=== PATIENT | female | born 1990 | race Caucasian/White ===

== ENCOUNTER → 2024-01-06 09:58 | Outpatient (REF) | payer OTHER, SELFPAY | LOC: WDC 09:58 | PROVIDERS: ATTENDING PHYSICIAN Obstetrics & Gynecology; FAMILY PHYSICIAN Physician Assistant | DX: N63.21 Unspecified lump in the left breast, upper outer quadrant (principal) | CPT/HCPCS: 76642; 77062; 77066 ==

== ENCOUNTER 2024-07-29 04:20 | Emergency (ER) | payer OTHER, SELFPAY ==
[2024-07-29] VITALS (9 sets, daily range): BP systolic 132–204; BP diastolic 78–122; BMI 26.5
[2024-07-29] MEDS: DILAUDID 0.5 MG IV ×2 (04:47→07:07)
[2024-07-29] MEDS: ZOFRAN 4 MG IV (04:47)
[2024-07-29 05:01] LABS: % Basophils 1.2 % (0-2); % Eosinophils 1.6 % (0-6); % Immature Granulocytes 0.1 % (0-0.5); % Lymphocytes 43.3 % (20.5-51.1); % Monocytes 5.9 % (1.7-9.3); % Neutrophils 47.9 % (42.2-75.2); Absolute Basophils 0.1 10^3/uL (0-0.2); Absolute Eosinophils 0.2 10^3/uL (0-0.7); Absolute Lymphocytes 4.1 10^3/uL (1.2-3.4); Absolute Monocytes 0.6 10^3/uL (0.1-0.6); Absolute Neutrophils 4.6 10^3/uL (1.4-6.5); Hematocrit 36.6 % (37.0-47.0); Hemoglobin 12.8 g/dL (12.0-16.0); Mean Corpuscular Hgb 29.4 pg (27.0-31.0); Mean Corpuscular Volume 83.9 fL (81.0-99.0); Mean Platelet Volume 9.8 fL (7.4-10.4); Nucleated Red Blood Cells % 0 %; Platelet Count 308 10^3/uL (130-400); Red Blood Cell Count 4.36 10^6/uL (4.20-5.40); Red Cell Dist. Width 13.7 % (11.5-14.5); White Blood Cell Count 9.5 10^3/uL (4.8-10.8)
--- NOTE | 2024-07-29 05:18 | ED.GENMED ---
History of Present Illness
General
Chief Complaint: Abdominal Symptoms
Source: patient
Exam Limitations: none
Time Seen by Provider: 07/29/24 04:51
Nursing documentation reviewed up to this point in time: agreed with
History of Present Illness
History of Present Illness:
Note:
CHIEF COMPLAINT(S)
Abdominal pain
HISTORY OF PRESENT ILLNESS
A 34-year-old female presents with abdominal pain described as burning and ripping across the back. The pain started around 2:00 PM today and is presently characterized as dull but persistent. The patient noted onset of pain approximately 1 hour
after consuming a meal, which consisted of half a chicken salad sandwich. The patient reports that previously the pain was intense but has since become more manageable, yet persistent. She describes the pain as 'like a little bit of everything,'
including 'burning' and 'ripping' sensations.
The patient reports no recent episodes of fever. Past medical history is notable for the patient having undergone surgery for a twisted ovary. She is not currently on any medications.
SOCIAL HISTORY
The patient previously resided in the neighborhood but has since relocated to a different area. She discusses issues related to access to coffee but no specific mention of substance use such as smoking, alcohol, or drug use.
PHYSICAL EXAM
- Nursing notes reviewed and vital signs reviewed.
PROBLEM LIST
Acute: Abdominal pain
DIFFERENTIAL DIAGNOSIS
The Differential Diagnosis includes, in no particular order and is not limited to:
1. Gastroesophageal reflux disease (GERD)
2. Peptic ulcer disease
3. Gallbladder disease such as cholelithiasis or cholecystitis
4. Pancreatitis
5. Irritable bowel syndrome
6. Appendicitis
7. Ovarian torsion
8. Endometriosis
9. Urinary tract infection
10. Musculoskeletal pain
Disposition:
DIAGNOSIS
- Cholecystitis (K81.0)
SUMMARY OF ENCOUNTER
A 34-year-old female presented to the emergency department with severe right upper quadrant abdominal pain beginning approximately one hour after consuming a chicken salad sandwich. The patients ultrasound revealed a distended gallbladder with wall
thickening, but no evidence of cholelithiasis or biliary obstruction. The pain persisted, necessitating pain management.
DISPOSITION
Admit
ASSESSMENT
The patient is likely suffering from acute acalculous cholecystitis given the ultrasound findings and symptomatology. Other differential diagnoses include gallbladder disease complications and potential pancreatitis.
EMERGENCY TREATMENTS ADMINISTERED
Patient required pain medication for severe abdominal pain.
INDEPENDENT INTERPRETATION OF TESTS
My independent interpretation of the abdominal ultrasound shows a distended gallbladder with thickened sagastume and no visible cholelithiasis or biliary obstruction.
PATIENT EDUCATION AND COUNSELING
The patient was informed about the likely diagnosis of cholecystitis and the need for further evaluation and potential intervention. Pain management options and dietary modifications were likely discussed as preventive measures.
MEDICAL DECISION MAKING
Number and Complexity of Problems Addressed: The patient presented with acute abdominal pain, and the differential diagnosis included multiple gastrointestinal conditions. Given the ultrasound findings, further evaluation was necessary to rule out
complications.
Risk: The decision for admission was influenced by the severity of symptoms and the potential risk of gallbladder-related complications requiring surgical intervention.
Review of Systems
Review of Systems
Allergies reviewed?: Yes
All Other Systems: ROS reviewed and negative except as documented in HPI and ROS
Constitutional: Reports no symptoms
EENT: Reports no symptoms
Respiratory: Reports no symptoms
Cardiac: Reports no symptoms
ABD/GI: Reports abdominal pain
: Reports no symptoms
Musculoskeletal: Reports no symptoms
Skin: Reports no symptoms
Neurological: Reports no symptoms
Endocrine: Reports no symptoms
Hematologic/Lymphatic: Reports no symptoms
Psychiatric: Reports anxiety
Phy Exam
General Physical Exam
General Presentation: well appearing, moderate distress and mild distress
General age: appears stated age
Gastrointestinal Exam
Gastrointestinal Exam: normal bowel sounds and guarding
Course
Orders/Labs/Results
Orders:
Orders
07/29/24 04:31
Test Result ONCE
07/29/24 04:38
0.9% Sodium Chloride 1000 ml [Nss] 1,000 ml IV BOLUS
HYDROmorphone [Dilaudid] 0.5 mg IV NOW STA
Ondansetron Injectable [Zofran] 4 mg IV NOW STA
07/29/24 04:43
Complete Blood Count/With Diff Urgent
Comprehensive Metabolic Panel Urgent
HCG, Serum Qualitative Screen Urgent
Lipase Urgent
07/29/24 05:17
US Abdomen Complete/Upper Urgent
Comment:
Reason For Exam: upper abd pain
07/29/24 06:54
HYDROmorphone [Dilaudid] 0.5 mg IV NOW STA
07/29/24 08:24
SURGICAL CONSULT Routine
Consulting Provider: Caio Guy
Was physician already notified: Yes
07/29/24 09:53
Iohexol [Omnipaque] See Protocol PO NOW STA
07/29/24 09:54
CT Abd/pel W Iv And Oral Contr Urgent
Comment:
Reason For Exam: abdominal pain
07/29/24 10:24
Ketorolac [Toradol] 15 mg .ROUTE .STK-MED ONE
07/29/24 10:27
Ketorolac [Toradol] 15 mg IV NOW STA
Abnormal Lab Results
07/29/24
04:43
Hct 36.6 L %
(37.0-47.0)
Absolute Lymphs (auto) 4.1 H 10^3/uL
(1.2-3.4)
Carbon Dioxide 21 L mmol/L
(22-30)
Glucose 138 H mg/dl
(70-99)
07/29/24 04:43
07/29/24 04:43
Vital Signs
Initial and Last Documented VS:
Initial Vital Signs
Temp Pulse Resp BP Pulse Ox
97.6 F 96 24 204/122 97
07/29/24 04:24 07/29/24 04:24 07/29/24 04:24 07/29/24 04:24 07/29/24 04:24
Last Documented Vital Signs
Temp Pulse Resp BP Pulse Ox
98.6 F 88 16 132/78 99
07/29/24 12:08 07/29/24 12:08 07/29/24 12:08 07/29/24 12:08 07/29/24 12:08
*Critical Care Note
Total Time (30-74mins, 75-104mins- exclusive of procedures): Not Applicable
ED Attending Note
-
Portions of this chart may have been created with voice recognition software.� Occasional wrong word or��sound alike� substitutions may have occurred due to the inherent limitations of voice recognition software.
Discharge Plan
Departure
Patient Disposition: Home (Routine Discharge)
Date of Disposition: 07/29/24
Time of Disposition: 13:57
Admit to: Med/Surg
Patient with high blood pressure during this ER visit?: Yes
Condition: Good
Discharge Problem:
Right upper quadrant abdominal pain
Instructions: Gallstones - Discharge instructions
Prescriptions:
No Action
lorazepam 1 MG tablet
1 mg PO BIDPRN PRN (Reason: anxiety)
hydroxyzine pamoate 25 mg Capsule
25 mg PO BIDPRN PRN (Reason: anxiety)
magnesium glycinate 100 mg Tablet
100 mg PO HS
Referrals:
Caio Guy MD [Active, Surgical]
UNKNOWN - PT DOES,NOT KNOW [Family Provider]
Activity Restrictions/Additional Instructions:
The ultrasound and CT scans did not show gallstones, but did show some inflammation of the gallbladder. You were evaluated by Dr. Guy with surgery and he felt you did not need emergent surgery for this. Please follow up with him as an outpatient
and return to ER with new or worsening symptoms including fevers, intractable vomiting/pain.
Interventions
Interventions:
*Risk Screen - Suicide Last Done: 07/29/24 06:54
*General Assessment Last Done: 07/29/24 06:54
*Neglect/Abuse Screening Last Done: 07/29/24 06:54
*ED- Fall Risk Assessment Last Done: 07/29/24 06:54
*ED COVID-19 Vaccine History Last Done: 07/29/24 06:54
*Nursing Disposition Last Done: 07/29/24 14:09
TS-Qjjbrf-Efiuhnhhpk Assessment Last Done: 07/29/24 04:35
Discharge Date and Time
Discharge Date/Time: 07/29/24 14:09
Print Language: TURKMEN
[2024-07-29 05:25] LABS: ALT (SGPT) 31 U/L (0-35); AST (SGOT) 31 U/L (14-36); Albumin 4.4 g/dl (3.5-5.0); Alkaline Phosphatase 58 U/L (38-126); Blood Urea Nitrogen 11 mg/dl (7-17); Calcium 9.5 mg/dl (8.4-10.2); Carbon Dioxide 21 mmol/L (22-30); Chloride 107 mmol/L (98-107); Estimated Creatinine Clearance 95 ml/min; Glucose 138 mg/dl (70-99); Lipase 147 U/L (23-300); Potassium 4.1 mmol/L (3.5-5.1); Sodium 140 mmol/L (135-145); Total Bilirubin 0.4 mg/dl (0.2-1.3); Total Protein 7.3 g/dl (6.3-8.2); eGFR > 60.00
[2024-07-29 05:34] LABS: HCG, Serum Qualitative Screen Negative
[2024-07-29] MEDS: NSS 1000 IV (05:45)
--- NOTE | 2024-07-29 09:54 | ED.ADDNOTE ---
ED Addendum
ED Addendum
ED Addendum Note:
Patient was evaluated by surgery as well as the hospitalist on-call. Patient is feeling much better at this time. Surgery does not feel like she has an acute gallbladder. Patient offered continued observation for CT scan and symptomatic relief.
She prefers not to stay at the hospital. Discussed with patient, we will CT scan in the emergency department and if no acute disease then we will p.o. challenge her and aim to discharge if she is feeling better
[2024-07-29] MEDS: OMNIPAQUE 50 ML PO (10:16)
[2024-07-29] MEDS: TORADOL 15 MG IV (10:28)
--- NOTE | 2024-07-29 10:33 | CON.GS ---
Consultation
-
Date/Time Consultation Requested: 07/29/2024 9 AM
Date/Time Consultation Performed: 07/29/2024 9:30 AM
Requesting Provider: Dr. Deng
Performing Provider: Dr. Guy
Reason for Consultation: Right upper quadrant pain
Medical History
-
Chief Complaint: Epigastric abdominal pain
History of Present Illness:
This is a 34-year-old female who presents with a 1 day history of epigastric pain radiating down to her umbilicus. She has had similar pain in the past but workup including HIDA scan was negative. She had an ultrasound done here which was negative
for stones, though the gallbladder was noted to be slightly thickened and distended. Nevertheless she has no white count and LFTs are normal. Furthermore, she states that her pain has now resolved. The patient denies Fever, Chest Pain, Shortness
Of Breath, Nausea, Vomiting, changes in urinary and bowel habits, unintentional weight loss, jaundice, icterus, acolic stools.
Past Medical History
Past Medical History: Reviewed & Noncontributory
Past Surgical History: None
Social History
Tobacco: Non-Smoker
Alcohol: None
Drug: None
Family History
Family History: Reviewed & Not Pertinent
Allergies / Home Medications
Allergy/AdvReac Type Severity Reaction Status Date / Time
Penicillins Allergy Unknown Verified 07/29/24 04:24
�Medication �Instructions �Recorded �Confirmed �Type
hydroxyzine pamoate 25 mg capsule 25 mg PO BIDPRN PRN anxiety 07/29/24 07/29/24 History
lorazepam 1 mg tablet 1 mg PO BIDPRN PRN anxiety 07/29/24 07/29/24 History
magnesium glycinate 100 mg (as 100 mg PO HS 07/29/24 07/29/24 History
glycinate) tablet
Review of Systems
-
All other systems: Negative unless noted
A 10 point review of systems was completed, and was negative except as per HPI.
Physical Exam
Vital Signs
Temp Pulse Resp BP Pulse Ox
98.5 F 98 16 144/88 96
07/29/24 04:35 07/29/24 10:00 07/29/24 10:00 07/29/24 10:00 07/29/24 08:41
07/28/24 07/29/24 07/30/24
06:59 06:59 06:59
Actual Weight 67.9 kg
Body Mass Index (BMI) 26.5
Lab Results
07/29/24 04:43
07/29/24 04:43
WBC 9.5 10^3/uL (4.8-10.8) 07/29/24 04:43
Hgb 12.8 g/dL (12.0-16.0) 07/29/24 04:43
Hct 36.6 % (37.0-47.0) L 07/29/24 04:43
Plt Count 308 10^3/uL (130-400) 07/29/24 04:43
Abs Immat Gran (auto) 0.0 10^3/uL (0-0.05) 07/29/24 04:43
Neutrophils % 47.9 % (42.2-75.2) 07/29/24 04:43
Data Reviewed
-
Ultrasound: Image Personally Visualized and interpreted, Report Reviewed by me, Discussed with Physician and Discussed with Patient
Labs: Labs Reviewed by me, Discussed with Physician and Discussed with Patient
Total Time Spent with Patient (in minutes): 30
Assessment / Plan
-
This is a 34-year-old female who presents with epigastric abdominal pain radiating in a bandlike fashion across the abdomen. Her abdominal exam is unremarkable and she is not tender to palpation. Blood work unremarkable, ultrasound imaging shows a
distended and mildly thickened gallbladder with no stone disease. She has a remote HIDA scan which was performed for similar but less severe symptoms previously which was negative (gallbladder EF 99%).
No acute surgical intervention warranted and no clear indication for surgical admission at this point.
Dispo per ED/primary, though would be reasonable to p.o. challenge and continue outpatient workup if her symptoms have resolved.
== END 2024-07-29 14:09 | disposition home or self-care (01) ==
LOC: EMR 04:20
PROVIDERS: CONSULT PHYSICIAN Surgery; EMERGENCY PHYSICIAN Student in an Organized Health Care Education/Training Program
DX: R10.11 Right upper quadrant pain (principal); Z90.721 Acquired absence of ovaries, unilateral
CPT/HCPCS: 99284; 96374; 96375; 96376; 74177; 76700; 80053; 83690; 84703; 85025; Q9967

== ENCOUNTER 2024-09-17 04:44 | Day surgery (SDC) | payer OTHER, SELFPAY ==
[2024-09-17] VITALS (20 sets, daily range): BP systolic 137–208; BP diastolic 96–126; BMI 28.9; BMI 28.8; BMI 28.7
[2024-09-17 01:20] LABS: Hematocrit 37.4 % (37.0-47.0); Hemoglobin 12.5 g/dL (12.0-16.0); Mean Corp Hgb Conc. 33.4 g/dL (33.0-37.0); Mean Corpuscular Volume 87.0 fL (81.0-99.0); Nucleated Red Blood Cells % 0 %; Platelet Count 256 10^3/uL (130-400); Red Cell Dist. Width 14.5 % (11.5-14.5)
[2024-09-17] MEDS: NSS 1000 IV ×2 (01:26→06:23)
[2024-09-17] MEDS: ZOFRAN 4 MG IV ×2 (01:26→15:00)
[2024-09-17] MEDS: TORADOL 15 MG IV ×2 (01:26→02:29)
[2024-09-17 01:35] LABS: ALT (SGPT) 19 U/L (0-35); AST (SGOT) 24 U/L (14-36); Albumin 4.1 g/dl (3.5-5.0); Alkaline Phosphatase 44 U/L (38-126); Blood Urea Nitrogen 15 mg/dl (7-17); Calcium 9.4 mg/dl (8.4-10.2); Carbon Dioxide 21 mmol/L (22-30); Chloride 110 mmol/L (98-107); Estimated Creatinine Clearance 110 ml/min; Glucose 134 mg/dl (70-99); Lipase 132 U/L (23-300); Potassium 4.3 mmol/L (3.5-5.1); Sodium 138 mmol/L (135-145); Total Protein 6.9 g/dl (6.3-8.2); eGFR > 60.00
[2024-09-17 01:52] LABS: HCG, Serum Qualitative Screen Negative
[2024-09-17 02:53] LABS: Urine Character Clear (Clear)
[2024-09-17 02:59] LABS: Urine Squamous Cell >30 /LPF (Few)
[2024-09-17 03:00] LABS: Urine White Cell None Seen /HPF (0-5)
[2024-09-17] MEDS: DILAUDID 0.5 MG IV ×6 (03:08→15:49)
--- NOTE | 2024-09-17 03:21 | ED.GENMED ---
History of Present Illness
General
Chief Complaint: Abdominal Pain
Source: patient
Exam Limitations: none
Time Seen by Provider: 09/17/24 01:15
Nursing documentation reviewed up to this point in time: agreed with
History of Present Illness
History of Present Illness:
34-year-old female presenting to the emergency department today with concerns of right upper quadrant abdominal pain over the past few hours. Has had intermittent symptoms in the past from gallstones. Associated nausea and vomiting as well. No
fevers no changes in bowel movements.
Review of Systems
Review of Systems
Allergies reviewed?: Yes
All Other Systems: ROS reviewed and negative except as documented in HPI and ROS
Phy Exam
Physical Exam
Physical Exam:
GENERAL: Alert , in no apparent distress
EYE: pupils equal and reactive
NECK: Supple, no significant adenopathy.
ENT: o/p clr, mmm.
CARDIAC: Regular rate and rhythm .
LUNGS: Clear breath sounds bilaterally, no acute respiratory distress, no wheezes/rales/rhonchi
ABDOMEN: Right upper quadrant pain positive Morel's otherwise soft abdomen
NEUROLOGICAL: Alert and oriented, no focal neuro deficits
SKIN: Warm and dry, skin intact.
MUSCULOSKELETAL: No edema, well perfused.
PSYCH: Normal and appropriate interaction.
Course
Orders/Labs/Results
Orders:
Orders
09/17/24 01:12
Complete Blood Count/With Diff Urgent
Comprehensive Metabolic Panel Urgent
HCG, Serum Qualitative Screen Urgent
Comment: ADDED
Lipase Urgent
09/17/24 01:17
Ketorolac [Toradol] 15 mg IV NOW STA
Ondansetron Injectable [Zofran] 4 mg IV NOW STA
Test Result ONCE
US Abdomen Complete/Upper Urgent
Comment:
Reason For Exam: RUQ pain
09/17/24 01:18
0.9% Sodium Chloride 1000 ml [Nss] 1,000 ml IV BOLUS
09/17/24 01:21
Add On- LAB Urgent
Tests Added?: Beta qual
09/17/24 02:26
Ketorolac [Toradol] 15 mg IV NOW STA
09/17/24 02:31
Urine Microscopic Reflex Cult Urgent
Urine Reflex Culture from UA [Urinalysis Reflex To Culture] Urgent
Date Specimen was Collected: 09/17/24
Time Specimen was Collected: 02:11
09/17/24 02:59
HYDROmorphone [Dilaudid] 0.5 mg IV NOW STA
09/17/24 03:20
Ciprofloxacin 400 mg IVPB NOW Ciprofloxacin 400 mg/[id number] [Cipro 400 mg] 200 ml IV NOW
MetroNIDAZOLE IVPB 500 mg IVPB NOW MetroNIDAZOLE 500 MG/100 ML [Flagyl 500 mg] 100 ml IV NOW
Abnormal Lab Results
09/17/24 09/17/24
01:12 02:31
Absolute Monos (auto) 0.7 H 10^3/uL
(0.1-0.6)
Chloride 110 H mmol/L
(98-107)
Carbon Dioxide 21 L mmol/L
(22-30)
Glucose 134 H mg/dl
(70-99)
Ur Occult Blood Reflex 4+ A
(Negative)
Urine RBC 3-6 A /HPF
(0-2)
Urine Bacteria (Reflex) Few A
(Negative)
Urine Albumin (Reflex) 2+ A
(Neg - Trace)
09/17/24 01:12
09/17/24 01:12
Vital Signs
Initial and Last Documented VS:
Initial Vital Signs
Temp Pulse Resp BP Pulse Ox
98.8 F 96 16 208/126 99
09/17/24 00:56 09/17/24 00:56 09/17/24 00:56 09/17/24 00:56 09/17/24 00:56
Last Documented Vital Signs
Temp Pulse Resp BP Pulse Ox
98.8 F 87 20 158/98 98
09/17/24 00:56 09/17/24 02:30 09/17/24 02:30 09/17/24 02:30 09/17/24 02:30
MDM/Problems Addressed
MDM/Problems Addressed:
34-year-old female presenting to the emergency department today with concerns of right upper quadrant abdominal pain for a few hours prior to arrival. Patient does have reproducible pain to the right upper quadrant. Ultrasound performed that shows
an impacted stone and potential early cholecystitis. Labs normal vital patient did require multiple doses of IV pain meds. Otherwise will be admitted to surgical service. Case was discussed directly with the surgeon.
*Pulse Oximetry
SaO2: 98
Oxygen Mode of Delivery: Room air
Patient hypoxic: no (98)
*Critical Care Note
Total Time (30-74mins, 75-104mins- exclusive of procedures): Not Applicable
ED Attending Note
-
Portions of this chart may have been created with voice recognition software.� Occasional wrong word or��sound alike� substitutions may have occurred due to the inherent limitations of voice recognition software.
Discharge Plan
Departure
Patient Disposition: Admit
Date of Disposition: 09/17/24
Time of Disposition: 03:30
Admit to: Med/Surg
Admit to doctor: Leslie
Presentation/result/management discussed w/ accepting MD/DO: Gen surgery
Patient with high blood pressure during this ER visit?: No
Condition: Good
Covid-19: Not Applicable
Discharge Problem:
Impacted gallstone of gallbladder
Prescriptions:
No Action
lorazepam 1 MG tablet
1 mg PO BIDPRN PRN (Reason: anxiety)
hydroxyzine pamoate 25 mg Capsule
25 mg PO BIDPRN PRN (Reason: anxiety)
magnesium glycinate 100 mg Tablet
100 mg PO HS
Referrals:
Dubiel,Joy, PA-C [Family Provider, Internal Medicine]
Interventions
Interventions:
*Risk Screen - Suicide Last Done: 09/17/24 00:56
*General Assessment Last Done: 09/17/24 03:13
*Neglect/Abuse Screening Last Done: 09/17/24 00:56
*ED- Fall Risk Assessment Last Done: 09/17/24 00:56
*ED COVID-19 Vaccine History Last Done: 09/17/24 00:56
TD-Blzgdz-Jezzassqjw Assessment Last Done: 09/17/24 01:00
Discharge Date and Time
Print Language: THAI
[2024-09-17] MEDS: FLAGYL 500 MG 100 IV ×2 (03:58→16:52)
--- NOTE | 2024-09-17 04:26 | HPS.HSE ---
Addendum entered and electronically signed by Joaquin Nelson MD 09/17/24 10:32:
Patient seen and examined independently of admitting nurse practitioner. Agree with documented admission H&P with additions noted here.
HPI: 34-year-old female with acute onset of epigastric abdominal pain radiating to the right upper quadrant and her back. Similar to her presentation 6 weeks ago prompting recurrent emergency department visit. Nausea and anorexia but no vomiting.
No significant past medical history. Past surgical history notable for laparoscopic removal of left tube and ovary.
AFVSS
NAD AAO x 3
ABD: Soft, nondistended, tenderness localizing to the epigastrium and right upper quadrant
Ultrasound imaging with gallstone in the neck of the gallbladder. No wall thickening. No pericholecystic edema.
Assessment/plan: 34-year-old female with acute biliary colic and possible acute calculus cholecystitis. In the setting of 2 recent emergency department evaluations of persistent tenderness on examination this a.m. we discussed indications for
cholecystectomy at this hospitalization which patient is in agreement to proceed with.
Laparoscopic cholecystectomy with possible cholangiogram was reviewed in detail including the operative technique, alternative treatment options, benefits and risks of the procedure such as bleeding, infectious and related complications, iatrogenic
injury to surrounding structures. We discussed the typical postoperative recovery pending operative findings. Any of the patient's concerns or questions were fully addressed and informed consent was obtained.
Patient is on the OR schedule for today for cholecystectomy
N.p.o.
IV fluids and supportive care awaiting the OR availability and timing
Original Note:
Family Physician
-
Family Physician: Joy Hall
Chief Complaint
-
Abdominal Pain
History of Present Illness
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
that radiates to her back. She stated that pain started around 23:30 and continued to increase, rated at 9 out of 10. At 1 am she decided to come to the emergency department. Patient reports that she did have nausea, no vomiting. Does report loss of
appetite. Patient denies diarrhea, constipation, fevers, chills, or recent illness. Denies sick contacts.
Patient states she was here approximately 6 weeks ago (July 29, 2024) with similar symptoms, ultrasound was negative for stones, though gallbladder was noted to be slightly thickened and distended. Admitted and seen by Surgery. She had no white
count and LFT's were normal. Symptoms resolved, recommended outpatient workup.
In the emergency department, labs are unremarkable. Vital signs stable. Patient is afebrile.
Abdominal Ultrasound performed, preliminary read by [facility] shows an impacted stone in the gallbladder neck measuring approximately 1.3 cm in size. Gallbladder is distended measuring 11.2 x 3.7 cm. No appreciable gallbladder wall thickening or
pericholecystic fluid. Positive sonographic Morel's sign per report. Findings could signify early acute cholecystitis.
Patient received: IV fluids, Toradol, Dilaudid, Zofran, IV antibiotics (patient reports penicillin allergy): Metronidazole and Ciprofloxacin
The Emergency Provider, Redd Quinonez Jr. PA-C, discussed case with General Surgery, Dr. Nelson, who accepts the patient to his service. Plan: NPO until seen by surgery, IV fluids, IV antibiotics continued (patient reports penicillin allergy):
Metronidazole and Ciprofloxacin, pain medication and antiemetics.
Medical History
Past Medical History
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
Social History
Tobacco: Vaping ('all day' per patient)
Alcohol: Other (drinks two to three times a week, 2-5 drinks )
Drug: None
Personal: Single
Living: With Family
Employment: Employed
Family History
Family History: Not pertinent
Allergies / Home Medications
Allergies reflects when Allergies were last updated in [facility].
Home Medications with original date entered in [facility]
Allergy/Medication List:
Patient Allergies
Allergy/AdvReac Type Severity Reaction Status Date / Time
Penicillins Allergy Unknown Verified 09/17/24 00:55
Home Medications
�Medication �Instructions �Recorded
hydroxyzine pamoate 25 mg capsule 25 mg PO BIDPRN PRN anxiety 07/29/24
lorazepam 1 mg tablet 1 mg PO BIDPRN PRN anxiety 07/29/24
magnesium glycinate 100 mg (as 100 mg PO HS 07/29/24
glycinate) tablet
Review of Systems
-
History Source: Patient
A 12 point ROS was completed and negative except as noted: Yes
Constitutional: Reports No Symptoms
EENT: Reports No Symptoms
Respiratory: Reports No Symptoms
Cardiac: Reports No Symptoms
Abdomen/GI: Reports Abdominal Pain, Nausea and Vomiting
: Reports No Symptoms
Musculoskeletal: Reports No Symptoms
Skin: Reports No Symptoms
Neurological: Reports No Symptoms
Endocrine: Reports No Symptoms
Psych: Reports Calm
Physical Exam
Vital Signs
Vital Signs
Temp Pulse Resp BP Pulse Ox
98.8 F 87 20 158/98 98
09/17/24 00:56 09/17/24 02:30 09/17/24 02:30 09/17/24 02:30 09/17/24 03:24
Physical Exam
General: Well Nourished, No Apparent Distress, Conversant and Poor Appetite
HEENT: NormoCephalic, Moist mucous membranes and PERRLA
Respiratory: Clear and Non Labored Respirations
Cardiac: S1/S2 and Regular Rhythm
GI: Soft, Normal Bowel Sounds and Tender (Right upper quadrant pain, positive Morel's sign)
Skin: Dry
Neuro: Awake and Oriented
Psych: Calm and Intact Judgment/Insight
Laboratory Results
-
09/17/24 01:12
09/17/24 01:12
Laboratory Results
Total Bilirubin 0.4 mg/dl (0.2-1.3) 09/17/24 01:12
AST 24 U/L (14-36) 09/17/24 01:12
ALT 19 U/L (0-35) 09/17/24 01:12
Alkaline Phosphatase 44 U/L (38-126) 09/17/24 01:12
Lipase 132 U/L (23-300) 09/17/24 01:12
Data Reviewed
-
Ultrasound: Report Reviewed by me
Lab Data: Labs Reviewed by me
Impression/Plan
-
IMPRESSION:
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
that radiates to her back.
PLAN:
Acute cholecystitis/Impacted gallstone of gallbladder
-Admit to General Surgery, Med Surg under the service of Dr. Nelson
-Abdominal Ultrasound performed, preliminary read by [facility] shows an impacted stone in the gallbladder neck measuring approximately 1.3 cm in size. Gallbladder is distended measuring 11.2 x 3.7 cm. No appreciable gallbladder wall thickening or
pericholecystic fluid. Positive sonographic Morel's sign per report. Findings could signify early acute cholecystitis.
-NPO until seen by surgery, IV fluids NSS @ 75 mls/hr
-IV antibiotics: Continued IV antibiotics (patient reports penicillin allergy): Metronidazole and Ciprofloxacin
-Pain medication: Dilaudid
-Antiemetics: Zofran
DVT prophylaxis: SCD's
Code status: Full code
[2024-09-17] MEDS: CIPRO 400 MG 200 IV (05:04)
--- NOTE | 2024-09-17 07:13 | PTCARENOTE ---
Pt reports ETOH use 4-5 drinks twice a week. [employer] aware, no MSAS order at this time.
--- NOTE | 2024-09-17 13:06 | W.SUR.PREOP ---
Pre-Operative Surgical Note
-
I have examined this patient prior to the performance of the scheduled procedure.
The patient's condition is unchanged from the time of the current History and
Physical and the patient is able to undergo the scheduled procedure.
--- NOTE | 2024-09-17 14:49 | W.IMMPOSTOP ---
Addendum entered and electronically signed by Joaquin Nelson MD 09/17/24 15:00:
#[id number]
Original Note:
Surgical Immed Post Op Note
-
Primary Surgeon: Joaquin Nelson MD
Assisting Surgeon: Oswald Holt
Pre-op Diagnosis: Acute calculus cholecystitis
Post-op Diagnosis: Acute calculus cholecystitis
Procedure Performed: Laparoscopic cholecystectomy with intraoperative cholangiogram
Anesthesia Type: GETA +0.25% Marcaine with epi
Specimen / Cultures: Gallbladder
Estimated Blood Loss: 6 mL
Complications: None immediate
Operative Findings: Distended gallbladder with edematous changes in the wall. Stone in the gallbladder neck. Normal intraoperative cholangiogram
[2024-09-17] MEDS: SUBLIMAZE 25 MCG IV (15:01)
[2024-09-17] MEDS: TRANDATE 5 MG IV ×2 (15:09→16:00)
--- NOTE | 2024-09-17 16:31 | PTCARENOTE ---
pt back from OR s/p Lap leonor. pt is AAO*3, Vss, room air. pt c/o 05/21 pain. pt is on low fat diet. call iraheta within the reach. plan of care ongoing.
[2024-09-17] MEDS: ROXICODONE 5 MG PO (16:51)
[2024-09-17] MEDS: LOVENOX 40 MG SC (16:52)
[2024-09-17] MEDS: ATIVAN 1 MG PO (16:52)
--- NOTE | 2024-09-17 17:14 | CM ---
Met with patient to obtain information for assessment. Patient stated that she lives with her mom in a two story town house with two steps to enter. She described herself as independent with ALDLs, personal care, dressing and bathing. 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
do business asst, cook, clean and do laundry. She had no DME. She has never had VN or been to a SNF.
Patient has a prescription plan and uses, [facility] in [place] for all of her medications.
Patient's PCP is, Atiya Hall.
OBS letter, reviewed and signed. It is now on chart.
Plan: Case management will continue to follow and assist with discharge planning. Home no needs.
--- NOTE | 2024-09-17 17:30 | W.DS.TRANS ---
DC Summary - [employer]
-
Discharge Instructions:
Discharge Diagnosis/Procedures Symptomatic cholelithiasis. Laparoscopic
cholecystectomy
Diet As tolerated,Low Fat
Additional Diets Smaller meals initially after surgery as
abdominal bloating and distention are common for
the first few days
Activity No strenuous activity
Driving Restrictions No driving for 24 hours
Bathing Restrictions OK to Shower
Wound Care Glue at surgical sites typically peels off in 2
to 3 weeks
Instructions:
Stand-Alone Forms:
Changes to Home Medications: No
Discharge Medications:
DC Medications w/original date entered in [employer]
hydroxyzine pamoate 25 mg capsule 25 mg PO BIDPRN PRN anxiety 07/29/24
lorazepam 1 mg tablet 1 mg PO BIDPRN PRN anxiety 07/29/24
magnesium glycinate 100 mg (as glycinate) tablet 100 mg PO HS 07/29/24
acetaminophen 500 mg tablet (Tylenol Extra Strength) 1,000 mg (2 x 500 mg) PO Q6HPRN PRN mild pain #1 tab 09/17/24
ibuprofen 200 mg tablet 400 mg (2 x 200 mg) PO Q6HPRN PRN moderate pain #1 tab 09/17/24
oxycodone 5 mg tablet 5 mg PO Q4HPRN PRN breakthrough/severe pain #7 tabs 09/17/24
polyethylene glycol 3350 17 gram/dose oral powder (Miralax) 4 g PO DAILY PRN Constipation #119 grams 09/17/24
Home Medication Changes
Pending Results: No
== END 2024-09-17 18:00 | disposition home or self-care (01) ==
LOC: SDS 04:44
PROVIDERS: Physician Assistant; ATTENDING PHYSICIAN Surgery; EMERGENCY PHYSICIAN Emergency Medicine; FAMILY PHYSICIAN Physician Assistant
DX: K80.10 Calculus of gallbladder with chronic cholecystitis without obstruction (principal)
CPT/HCPCS: 47563; 74300; 76000; 76700; 80053; 81003; 81015; 83690; 84703; 85025; 88304; 93005; 96361; 96374; 96375; 96376; 99285; A4300